=== PATIENT | male | born 1995 | race Hispanic/Latino ===

== ENCOUNTER 2023-10-04 13:10 | Emergency (ER) | payer SELFPAY ==
[2023-10-04 13:20] VITALS: BP 121/74
--- NOTE | 2023-10-04 15:24 | ED.GENMED ---
History of Present Illness
General
Chief Complaint: Eye Problems
Time Seen by Provider: 10/04/23 15:02
Travel History
Have you had any contact with someone who has COVID-19?: No
Do you have any symptoms of coronavirus? Fever > 100 degrees, chills, cough, shortness of breath, sore throat, loss of taste or smell, muscle aches, or headache?: No
History of Present Illness
History of Present Illness:
28 yo male w/ no known PMH presents to the Emergency Department for evaluation of blurry vision and L eye discomfort ongoing for the past 6-7 months. Reports L eye pain occurs when he 'looks at the sun'. No diplopia. Also concerned for a headache
today. Does endorse frequent urination and thirst. Does not have routine medical care.
Review of Systems
Review of Systems
Allergies reviewed?: Yes
All Other Systems: ROS reviewed and negative except as documented in HPI and ROS
Phy Exam
Physical Exam
Physical Exam:
GEN: Well appearing, NAD, WDWN
HEENT: Oral mucosa moist, no scleral icterus, no nasal congestion. No scleral injection bilaterally. Normal extraocular motion. No hypopyon or hyphema.
Cardiac: Regular rate
Lung: No respiratory distress, no tachypnea
MSK: No gross deformity or injuries
Skin: Good color, no pallor or jaundice, no rashes
Neuro: AO x3; CN II-XII grossly intact. BUE strength 5/5 in all dumont, sensation intact and symmetric. BLE strength 5/5 in all dumont, sensation intact and symmetric
Psych: Calm, cooperative
Course
Orders/Labs/Results
Orders:
Orders
10/04/23 15:39
Complete Blood Count/With Diff Urgent
Comprehensive Metabolic Panel Urgent
Hemoglobin A1c [Glycohemoglobin (HgbA1c)] Urgent
10/04/23 16:36
CT Head W/o Iv Contrast Urgent
Comment:
Reason For Exam: headaches/blurry vision
10/04/23 17:30
Urinalysis Urgent
Date Specimen was Collected: 10/04/23
Time Specimen was Collected: 17:28
Abnormal Lab Results
10/04/23
15:39
RBC 4.69 L 10^6/uL
(4.70-6.10)
Glucose 113 H mg/dl
(70-99)
10/04/23 15:39
10/04/23 15:39
Vital Signs
Initial and Last Documented VS:
Initial Vital Signs
Temp Pulse Resp BP Pulse Ox
98.0 F 74 16 121/74 98
10/04/23 13:20 10/04/23 13:20 10/04/23 13:20 10/04/23 13:20 10/04/23 13:20
Last Documented Vital Signs
Temp Pulse Resp BP Pulse Ox
98.0 F 60 17 119/69 99
10/04/23 13:20 10/04/23 18:12 10/04/23 18:12 10/04/23 18:12 10/04/23 18:12
MDM/Problems Addressed
MDM/Problems Addressed:
Labs were obtained out of concern for potential underlying diabetes, blood sugar in the emergency department is normal however A1c is sent for follow-up purposes. Overall workup is reassuring, no evidence of intracranial pathology causing patient's
symptoms. Recommend outpatient primary care/family medicine follow-up as well as ophtho follow-up
*Critical Care Note
Total Time (30-74mins, 75-104mins- exclusive of procedures): Not Applicable
ED Attending Note
-
Portions of this chart may have been created with voice recognition software.� Occasional wrong word or��sound alike� substitutions may have occurred due to the inherent limitations of voice recognition software.
Discharge Plan
Departure
Patient Disposition: Home (Routine Discharge)
Date of Disposition: 10/04/23
Time of Disposition: 18:01
Patient with high blood pressure during this ER visit?: No
Discharge Problem:
Blurred vision
Referrals:
Dhruv Lam MD [Active] -
NONE,* [Family Provider] -
Activity Restrictions/Additional Instructions:
La causa de kenny s�ntomas no est� davian. [place] hemoglobina A1c resultar� en 1-2 d�as. Realice un seguimiento en la [facility]y Angela Lopez lo antes posible y considere realizar un seguimiento con el oftalm�logo que figura en [place] documentaci�n.
[facility]
[phone]
[address] [place] [address]
KRISTIE Clemens [id number]
Interventions
Interventions:
*Risk Screen - Suicide Last Done: 10/04/23 18:14
*General Assessment Last Done: 10/04/23 15:57
*Neglect/Abuse Screening Last Done: 10/04/23 18:14
ED- Fall Risk Assessment Last Done: 10/04/23 18:14
*ED COVID-19 Vaccine History Last Done: 10/04/23 13:20
*Nursing Disposition Last Done: 10/04/23 18:14
Discharge Date and Time
Discharge Date/Time: 10/04/23 18:15
Print Language: CITIZEN [place]
[2023-10-04 15:56] VITALS: BP 126/74
[2023-10-04 15:58] LABS: % Basophils 0.4 % (0-2); % Eosinophils 1.6 % (0-6); % Immature Granulocytes 0.1 % (0-0.5); % Lymphocytes 25.4 % (20.5-51.1); % Monocytes 7.2 % (1.7-9.3); % Neutrophils 65.3 % (42.2-75.2); Absolute Eosinophils 0.1 10^3/uL (0-0.7); Absolute Lymphocytes 1.8 10^3/uL (1.2-3.4); Absolute Monocytes 0.5 10^3/uL (0.1-0.6); Absolute Neutrophils 4.6 10^3/uL (1.4-6.5); Hematocrit 41.8 % (39.0-52.0); Hemoglobin 14.4 g/dL (13.0-18.0); Mean Corp Hgb Conc. 34.4 g/dL (33.0-37.0); Mean Corpuscular Hgb 30.7 pg (27.0-31.0); Mean Corpuscular Volume 89.1 fL (80.0-94.0); Mean Platelet Volume 10.2 fL (7.4-10.4); Nucleated Red Blood Cells % 0 % (-); Platelet Count 280 10^3/uL (130-400); Red Blood Cell Count 4.69 10^6/uL (4.70-6.10); Red Cell Dist. Width 12.7 % (11.5-14.5)
[2023-10-04 16:07] LABS: ALT (SGPT) 24 U/L (0-50); AST (SGOT) 25 U/L (17-59); Albumin 4.6 g/dl (3.5-5.0); Alkaline Phosphatase 87 U/L (38-126); Blood Urea Nitrogen 13 mg/dl (9-20); Calcium 9.7 mg/dl (8.4-10.2); Carbon Dioxide 26 mmol/L (22-30); Chloride 104 mmol/L (98-107); Glucose 113 mg/dl (70-99); Potassium 4.3 mmol/L (3.5-5.1); Sodium 139 mmol/L (135-145); Total Bilirubin 0.9 mg/dl (0.2-1.3); Total Protein 7.8 g/dl (6.3-8.2); eGFR > 60.00
[2023-10-04 18:12] VITALS: BP 119/69
[2023-10-04 18:25] LABS: Urine Albumin Negative (Neg - Trace); Urine Bilirubin Negative (Negative); Urine Character Clear (Clear); Urine Color Yellow; Urine Glucose Negative (Negative); Urine Ketone Negative (Negative); Urine Leukocyte Negative (Negative); Urine Nitrite Negative (Negative); Urine Occult Blood Negative (Negative); Urine Specific Gravity 1.015 (<1.030); Urine Urobilinogen Negative (Neg - 1+)
[2023-10-05 08:39] LABS: Glycohemoglobin (HgbA1c) 5.7 % (4.0-5.6)
== END 2023-10-04 18:15 | disposition home or self-care (01) ==
LOC: EMR 13:10
PROVIDERS: Physician Assistant; EMERGENCY PHYSICIAN Emergency Medicine
DX: H53.8 Other visual disturbances (principal)
CPT/HCPCS: 99284; 70450; 80053; 81003; 83036; 85025

== ENCOUNTER → 2023-11-30 10:30 | Outpatient (REF) | payer OTHER, SELFPAY ==
[2023-11-30 11:29] LABS: % Basophils 0.3 % (0-2); % Eosinophils 2.2 % (0-6); % Immature Granulocytes 0.2 % (0-0.5); % Lymphocytes 28.5 % (20.5-51.1); % Monocytes 7.2 % (1.7-9.3); % Neutrophils 61.6 % (42.2-75.2); Absolute Eosinophils 0.1 10^3/uL (0-0.7); Absolute Lymphocytes 1.7 10^3/uL (1.2-3.4); Absolute Monocytes 0.4 10^3/uL (0.1-0.6); Absolute Neutrophils 3.7 10^3/uL (1.4-6.5); Hematocrit 40.9 % (39.0-52.0); Hemoglobin 14.4 g/dL (13.0-18.0); Mean Corp Hgb Conc. 35.2 g/dL (33.0-37.0); Mean Corpuscular Hgb 30.5 pg (27.0-31.0); Mean Corpuscular Volume 86.7 fL (80.0-94.0); Mean Platelet Volume 10.3 fL (7.4-10.4); Nucleated Red Blood Cells % 0 % (-); Platelet Count 265 10^3/uL (130-400); Red Blood Cell Count 4.72 10^6/uL (4.70-6.10); Red Cell Dist. Width 12.6 % (11.5-14.5)
[2023-11-30 11:51] LABS: Blood Urea Nitrogen 13 mg/dl (9-20); Calcium 9.7 mg/dl (8.4-10.2); Carbon Dioxide 25 mmol/L (22-30); Chloride 102 mmol/L (98-107); Glucose 94 mg/dl (70-99); Potassium 3.9 mmol/L (3.5-5.1); Sodium 137 mmol/L (135-145); eGFR > 60.00
[2023-11-30 11:58] LABS: C-Reactive Protein < 5.00 mg/L (0.0-10.00)
[2023-11-30 12:33] LABS: Erythrocyte Sed Rate 15 mm/hour (0-20)
== END ==
LOC: CLINIC 10:30
PROVIDERS: ATTENDING PHYSICIAN Internal Medicine
DX: H57.13 Ocular pain, bilateral (principal)
CPT/HCPCS: 36415; 80048; 85025; 85652; 86140